=== PATIENT | male | born 1980 | race African-American/Black ===

== ENCOUNTER 2020-12-14 20:48 | Emergency (ER) | payer OTHER ==
[2020-12-14 21:09] VITALS: BP 135/86; PULSE 83; TEMP 101; BMI 27.5
[2020-12-14] MEDS ORDERED: SODIUM CHLORIDE 0.9% 500 ML INFUS.BAG IV ONE (21:18)
[2020-12-14] MEDS ORDERED: ACETAMINOPHEN 1000 MG/100 ML VIAL IVPB ONE (21:18)
[2020-12-14] MEDS ORDERED: ONDANSETRON 4 MG/2 ML VIAL IVPUSH ONE (21:18)
[2020-12-14] MEDS ORDERED: ACETAMINOPHEN INJECTION 100 ML IVPB ONE (21:30)
[2020-12-14] MEDS ORDERED: ONDANSETRON 4 MG/2 ML VIAL ONE (21:30)
[2020-12-14 22:04] LABS: BASO % 0.6 % (0-2.0); MONO % 10.1 % (3.8-10.2); RDW 12.2 % (11.9-15.9)
[2020-12-14 22:05] LABS: BILIRUBIN,TOTAL 0.6 mg/dl (0.2-1); CALCIUM 8.6 mg/dl (8.5-10); CREATININE 1.4 mg/dl (0.55-1.3); TOT PROT 7.1 g/dl (6.4-8.2)
[2020-12-14 22:06] LABS: EOS % 0.2 % (0-4.5); HEMATOCRIT 40.9 % (35.4-49); LYMPH % 23.3 % (8-40); MCH 31.6 pg (25.7-33.7); MCHC 34.3 g/dl (32.0-35.9); MEAN CELL VOLUME 92.3 fl (80-96); MEAN PLT VOLUME 9.2 fl (7.5-11.1); NEUT % 65.8 % (42.8-82.8); PLATELET COUNT 153 10^3/uL (134-434); RBC 4.44 M/mm3 (4.00-5.60); WHITE BLOOD COUNT 5.9 K/mm3 (4.0-10.8)
== END 2020-12-14 23:03 | disposition home or self-care (01) ==
LOC: FER 20:48
PROC: 3E033NZ Introduction of Analgesics, Hypnotics, Sedatives into Peripheral Vein, Percutaneous Approach (ICD-10-PCS; principal; 2020-12-14)
PROC: 3E033GC Introduction of Other Therapeutic Substance into Peripheral Vein, Percutaneous Approach (ICD-10-PCS; 2020-12-14)
DX: R11.0 Nausea (principal); R53.1 Weakness; R05 Cough; E86.0 Dehydration; U07.1 COVID-19
CPT/HCPCS: 36415; 71045-TC-FY; 80053; 85025; 96374; 96375; 99284-25; C9803; J0131; U0003; U0005